=== PATIENT | male | born 1945 | race Caucasian/White ===

== ENCOUNTER → 2021-01-19 | Outpatient (CLI) | payer OTHER ==
[2021-01-19 15:15] LABS: CREATININE, serum 0.9 (0.66-1.25)
== END ==
LOC: COL.LAB 14:13
PROVIDERS: Urology
DX: C61 Malignant neoplasm of prostate (principal)

== ENCOUNTER → 2021-01-22 | Outpatient (CLI) | payer OTHER | LOC: COL.RAD 08:45 | DX: C61 Malignant neoplasm of prostate (principal) | CPT/HCPCS: A9503; Q9967 ==